=== PATIENT | male | born 1970 | race Caucasian/White ===

== ENCOUNTER 2016-08-31 09:53 | Inpatient (IN) | payer SELFPAY ==
[2016-08-31 10:00] LABS: INR 1.5
== END 2016-08-31 11:45 | disposition home or self-care (01) | DRG 467 ==
LOC: C.3T 09:53
PROVIDERS: ADMIT Internal Medicine; ATTEND Internal Medicine
DX: Z02.89 Encounter for other administrative examinations (principal)